=== PATIENT | female | born 1995 ===

== ENCOUNTER 2017-07-25 12:26 | Emergency (ER) | payer OTHER ==
[2017-07-25] MEDS ORDERED: Sodium Chloride 0.9% 1,000 ML IV STA (14:22)
--- NOTE | 2017-07-25 14:32 | ED PDOC ---
HPI: Abdomen Time Seen by Provider: 07/25/17 14:07 Chief Complaint (Nursing): Abdominal Pain Chief Complaint (Provider): abdominal pain, diarrhea, vomiting, dog bite History Per: Patient History/Exam Limitations: no limitations Onset/Duration Of Symptoms: Days (10) Current Symptoms Are (Timing): Intermittent Episodes Location Of Pain/Discomfort: LLQ Quality Of Discomfort: Sharp, Cramping Associated Symptoms: Fever, Nausea, Vomiting, Diarrhea, Loss Of Appetite. denies: Urinary Symptoms Exacerbating Factors: None Alleviating Factors: None Last Bowel Movement: Today Additional Complaint(s): 22yo female presents c/o sharp LLQ abd pain started about 7 days ago while in [place]. Went to doctor in [place] started on (as translated by pharmacist) ranitidine, reglan and pinaverium (antimuscarinic/ antispasmodic), also took bactrim for one day but poorly tolerated so she stopped it on her own. She also notes a dog bite to [place] on july 16, bit by her cousins dog- he stated the dog was "vaccinated" but no paperwork provided to patient for such. States she went to [facility] after dogbite and had injection at area of bite and one in her buttock but she was not told it was for rabies and shes unsure what the injections were for. No paperwork from [place] other than the GI medications prescribed. Denies rash, headache, weakness, body aches or seizure activity. Past Medical History Reviewed: Historical Data, Nursing Documentation, Vital Signs Vital Signs: Last Vital Signs Temp 97.0 F L 07/25/17 13:18 Pulse 85 07/25/17 13:18 Resp 18 07/25/17 13:18 BP 113/77 07/25/17 13:18 Pulse Ox 99 07/25/17 15:08 - Medical History PMH: No Chronic Diseases - Surgical History Surgical History: No Surg Hx - Family History Family History: States: Unknown Family Hx - Living Arrangements Living Arrangements: With Family - Immunization History Hx Tetanus Toxoid Vaccination: No Hx Influenza Vaccination: No Hx Pneumococcal Vaccination: No - Home Medications Home Medications: Ambulatory Orders Medication Instructions Recorded Ciprofloxacin HCl [Ciprofloxacin] 500 mg PO BID #13 tab 08/27/15 Ciprofloxacin [Cipro] 500 mg PO BID #14 tab 07/25/17 Ibuprofen [Motrin Tab] 600 mg PO Q6 PRN #15 tab 07/25/17 Ondansetron ODT [Zofran ODT] 4 mg PO Q6 PRN #10 odt 07/25/17 metroNIDAZOLE [Flagyl] 500 mg PO TID #21 tab 07/25/17 - Allergies Allergies/Adverse Reactions: Allergies Allergy/AdvReac Type Severity Reaction Status Date / Time No Known Allergies Allergy Verified 03/23/16 21:39 Review of Systems Constitutional: Negative for: Malaise Eyes: Negative for: Conjunctivae Inflammation Cardiovascular: Negative for: Chest Pain Respiratory: Negative for: Shortness of Breath Gastrointestinal: Positive for: Nausea, Vomiting, Abdominal Pain, Diarrhea Genitourinary Female: Negative for: Dysuria, Hematuria Musculoskeletal: Negative for: Neck Pain, Back Pain Skin: Negative for: Rash, Lesions Neurological: Negative for: Weakness, Headache, Dizziness Psych: Negative for: Suicidal ideation Physical Exam - Reviewed Nursing Documentation Reviewed: Yes Vital Signs Reviewed: Yes - Physical Exam Appears: Positive for: Well, Non-toxic, No Acute Distress Head Exam: Positive for: ATRAUMATIC, NORMAL INSPECTION, NORMOCEPHALIC Skin: Positive for: Normal Color, Warm, DRY Eye Exam: Positive for: EOMI, Normal appearance, PERRL ENT: Positive for: Normal ENT Inspection Neck: Positive for: Normal, Painless ROM Cardiovascular/Chest: Positive for: Regular Rate, Rhythm Respiratory: Positive for: CNT, Normal Breath Sounds Gastrointestinal/Abdominal: Positive for: Soft, Tenderness (+LLQ tenderness). Negative for: Guarding, Rebound Back: Positive for: Normal Inspection Extremity: Positive for: Normal ROM Neurologic/Psych: Positive for: Alert, Oriented - Laboratory Results Result Diagrams: 07/25/17 14:40 07/25/17 14:40 - ECG O2 Sat by Pulse Oximetry: 99 Medical Decision Making Medical Decision Making: workup for delayed presentation of dog bite and Abd pain w diarrhea/vomiting in setting travel to [place] Discussed dog bite with ID material preparation worker Dr Howard- given inability to confirm dogs rabies vaccination, inaccessability of dog, recommend immunoglobulin and vaccine. Risks/benefits discussed w patient. She agrees to receive both. She checked with MD in [place] who saw her and only lidocaine and toradol were given IM in [place]. Cannot confirm dog rabies status. While delayed presentation from bite, package insert for immuniglobulin states interval not relevant for administration. Disposition - Clinical Impression Clinical Impression: Encounter for prophylactic rabies immune globin, Travelers' diarrhea, Colitis - Patient ED Disposition Is Patient to be Admitted: No Counseled Patient/Family Regarding: Studies Performed, Diagnosis, Need For Followup, Rx Given - Disposition Disposition: Routine/Home Disposition Time: 17:45 Condition: STABLE Additional Instructions: Rabies vaccine as directed, speak to your PMD for vaccine series, or if unable, return to ER Day 3 (07/28), Day 7 (08/01), Day 14 (08/08/17) Take antibiotics as directed for colitis. Drink plenty of fluids. Avoid milk / dairy for 2 weeks. Prescriptions: Ciprofloxacin [Cipro] 500 mg PO BID #14 tab Ibuprofen [Motrin Tab] 600 mg PO Q6 PRN #15 tab PRN Reason: Pain, Moderate (4-7) metroNIDAZOLE [Flagyl] 500 mg PO TID #21 tab Ondansetron ODT [Zofran ODT] 4 mg PO Q6 PRN #10 odt PRN Reason: Nausea/Vomiting Instructions: Traveler's Diarrhea, Animal Bites (DC), Rabies Vaccine, Rabies Immune Globulin (Human) Forms: [facility] (Yoruba)
[2017-07-25 14:56] LABS: BASO # 0.1 K/uL (0.0-0.2); BASO % 0.7 % (0.0-2.0); EOS # 0.3 K/uL (0.0-0.7); EOS % 3.8 % (0.0-4.0); HEMOGLOBIN 13.2 g/dL (12.0-16.0); LYMPH # 1.8 K/uL (1.0-4.3); LYMPH % 24.7 % (20.0-40.0); MEAN CELL VOLUME 88.4 fl (81.0-99.0); MEAN CORPUSCULAR HEMOGLOBIN 30.5 pg (27.0-31.0); MEAN CORPUSCULAR HGB CONC 34.6 g/dL (33.0-37.0); MEAN PLATELET VOLUME 8.5 fl (7.2-11.7); MONO % 13.9 % (0.0-10.0); NEUT # 4.2 K/uL (1.8-7.0); NEUT % 56.9 % (50.0-75.0); NRBC % 0.1 % (0.0-0.0); RBC 4.31 Mil/uL (3.80-5.20); RED CELL DISTRIBUTION WIDTH 12.8 % (11.5-14.5); WHITE BLOOD COUNT 7.5 K/uL (4.8-10.8)
[2017-07-25 15:12] LABS: ALB/GLOB RATIO 0.9 (1.0-2.1); ALBUMIN 4.2 g/dL (3.5-5.0); GFR AFRICAN-AMERICAN > 60; GFR NON-AFRICAN AMERICAN > 60; LIPASE 123 U/L (23-300); SQUAMOUS EPITHIAL 2 /hpf (0-5); URINE BACTERIA RARE (<OCC); URINE BILIRUBIN NEGATIVE (NEGATIVE); URINE BLOOD SMALL (NEGATIVE); URINE CLARITY CLEAR (Clear); URINE COLOR STRAW (YELLOW); URINE GLUCOSE (UA) NEG (Normal); URINE LEUKOCYTE ESTERASE NEG Leu/uL (Negative); URINE PROTEIN NEGATIVE (NEGATIVE); URINE UROBILINOGEN 0.2-1.0 mg/dL (0.2-1.0)
[2017-07-25 15:15] LABS: ALT/SGPT 38 U/L (9-52); AST/SGOT 29 U/L (14-36); BLOOD UREA NITROGEN 12 mg/dl (7-17)
[2017-07-25 15:45] VITALS: BMI 36.9
[2017-07-25] MEDS ORDERED: Sodium Chloride 0.9% 50 ML IV ONE (16:41)
[2017-07-25] MEDS ORDERED: Iohexol 300 100 ML IJ ONE (16:41)
[2017-07-25] MEDS: Rabies Immune Globulin 150 INTLU/ML VIAL IM ONE ×2 (17:01→17:05)
--- NOTE | 2017-07-25 18:22 | CT ---
PROCEDURE: CT Abdomen and Pelvis with contrast HISTORY: LLQ pain, diarrhea, persistent vomiting COMPARISON: None. TECHNIQUE: Contrast dose: 95 cc Omnipaque 300 Radiation dose: Total exam DLP = mGy-cm. This CT exam was performed using one or more of the following dose reduction techniques: Automated exposure control, adjustment of the mA and/or kV according to patient size, and/or use of iterative reconstruction technique. FINDINGS: LOWER THORAX: Unremarkable. LIVER: Unremarkable. No gross lesion or ductal dilatation. GALLBLADDER AND BILE DUCTS: Unremarkable. PANCREAS: Unremarkable. No gross lesion or ductal dilatation. SPLEEN: Unremarkable. ADRENALS: Unremarkable. No mass. KIDNEYS AND URETERS: Unremarkable. No hydronephrosis. No solid mass. VASCULATURE: Unremarkable. No aortic aneurysm. BOWEL: Thickening of the wall of the descending colon likely mild colitis. Fecal debris and fluid identified in the right blas colon. No drainable collection, loculated air. APPENDIX: Normal appendix. PERITONEUM: Unremarkable. No free fluid. No free air. LYMPH NODES: Unremarkable. No enlarged lymph nodes. BLADDER: Unremarkable. REPRODUCTIVE: Unremarkable uterus. Bilateral adnexal cysts and/or follicles likely physiologic. BONES: No acute fracture. OTHER FINDINGS: None. IMPRESSION: Findings consistent with mild colitis limited to the left hemicolon. Additional benign and/or incidental findings described above.
[2017-07-25 19:37] VITALS: BP 122/76; PULSE 81; RESP 17; TEMP 97.9; O2SAT 100
== END 2017-07-25 19:36 | disposition home or self-care (01) ==
LOC: H.ER 12:26
DX: K52.9 Noninfective gastroenteritis and colitis, unspecified (principal); R19.7 Diarrhea, unspecified; S30.810A Abrasion of lower back and pelvis, initial encounter; W54.0XXA Bitten by dog, initial encounter; Y92.89 Other specified places as the place of occurrence of the external cause
CPT/HCPCS: 74177; 80053; 81003; 81025; 83690; 85025; 90375; 90471; 90675; 96372; 96374; 99283; J1885; J7030; Q9967

== ENCOUNTER 2017-07-28 12:02 | Emergency (ER) | payer OTHER ==
[2017-07-28 12:04] VITALS: BMI 36.9
[2017-07-28 12:54] VITALS: PULSE 76; O2SAT 100
[2017-07-28] MEDS ORDERED: Rabies Immune Globulin 150 INTLU/ML VIAL IM STA (13:09)
[2017-07-28] MEDS ORDERED: Tdap Vaccine 0.5 ml Vial (10-64 yrs) IM ONE (13:09)
--- NOTE | 2017-07-28 14:05 | ED PDOC ---
HPI: General Adult Time Seen by Provider: 07/28/17 13:07 Chief Complaint (Nursing): Rabies Vaccine Series Chief Complaint (Provider): Rabies Vaccine Series History Per: Patient History/Exam Limitations: no limitations Onset/Duration Of Symptoms: Days Current Symptoms Are (Timing): Better Additional Complaint(s): 22 year old female presents to the emergency department for Rabies Vaccine series after being bit by her cousins dog in [place] about 2 weeks ago. States dog was vaccinated. Denies taking any antibiotics, fever or chills. Past Medical History Reviewed: Historical Data, Nursing Documentation, Vital Signs Vital Signs: Last Vital Signs Temp 98.1 F 07/28/17 12:51 Pulse 76 07/28/17 12:51 Resp 16 07/28/17 12:51 BP 112/69 07/28/17 12:51 Pulse Ox 100 07/28/17 14:09 - Medical History PMH: No Chronic Diseases - Surgical History Surgical History: No Surg Hx - Family History Family History: States: Unknown Family Hx - Social History Current smoker - smoking cessation education provided: No Alcohol: None Drugs: Denies - Immunization History Hx Tetanus Toxoid Vaccination: No Hx Influenza Vaccination: No Hx Pneumococcal Vaccination: No - Home Medications Home Medications: Ambulatory Orders Medication Instructions Recorded Ciprofloxacin HCl [Ciprofloxacin] 500 mg PO BID #13 tab 08/27/15 Ciprofloxacin [Cipro] 500 mg PO BID #14 tab 07/25/17 Ibuprofen [Motrin Tab] 600 mg PO Q6 PRN #15 tab 07/25/17 Ondansetron ODT [Zofran ODT] 4 mg PO Q6 PRN #10 odt 07/25/17 metroNIDAZOLE [Flagyl] 500 mg PO TID #21 tab 07/25/17 - Allergies Allergies/Adverse Reactions: Allergies Allergy/AdvReac Type Severity Reaction Status Date / Time No Known Allergies Allergy Verified 03/23/16 21:39 Review of Systems ROS Statement: Except As Marked, All Systems Reviewed And Found Negative (As per HPI, otherwise negative) Constitutional: Negative for: Fever, Chills Skin: Positive for: Other (Wound check up and rabies vaccine) Physical Exam - Reviewed Nursing Documentation Reviewed: Yes Vital Signs Reviewed: Yes - Physical Exam Appears: Positive for: Well, Non-toxic, No Acute Distress Head Exam: Positive for: ATRAUMATIC, NORMAL INSPECTION, NORMOCEPHALIC Skin: Positive for: Normal Color, Warm, Dry Eye Exam: Positive for: Normal appearance, EOMI Extremity: Positive for: Normal ROM, Other (Healing wounds noted to the left lower leg posterior region. No signs of erythema vs scab. No ecchymosis.). Negative for: Pedal Edema Neurologic/Psych: Positive for: Alert, Oriented (x3), Gait (Steady) - ECG O2 Sat by Pulse Oximetry: 100 (RA) Pulse Ox Interpretation: Normal Medical Decision Making Medical Decision Making: Time: 1308 Initial impression: Rabies Vaccine Initial plan: Rabies vaccine 2.5 units IM Disposition Time: 1405 Patient was given Rabies vaccine in the emergency department and is medically clear for discharge. Clinical Impression: Encounter for administration of vaccine. Visit for wound check. Scribe Attestation: Documented by Marlyn Gant, acting as a scribe for Claribel Haddad PA-C. Provider Scribe Attestation: All medical record entries made by the Scribe were at my direction and personally dictated by me. I have reviewed the chart and agree that the record accurately reflects my personal performance of the history, physical exam, medical decision making, and the department course for this patient. I have also personally directed, reviewed, and agree with the discharge instructions and disposition. Disposition - Clinical Impression Clinical Impression: Encounter for administration of vaccine, Visit for wound check - Patient ED Disposition Is Patient to be Admitted: No Counseled Patient/Family Regarding: Diagnosis - Disposition Disposition: Routine/Home Disposition Time: 14:05 Condition: STABLE Instructions: Vaccines Forms: [employer] (Kiswahili)
[2017-07-28 14:11] VITALS: BP 118/71; RESP 18; TEMP 98
== END 2017-07-28 14:11 | disposition home or self-care (01) ==
LOC: H.ER 12:02
DX: Z29.14 Encounter for prophylactic rabies immune globulin (principal)

== ENCOUNTER 2017-08-01 15:26 | Emergency (ER) | payer OTHER ==
[2017-08-01 15:27] VITALS: BMI 36.9
[2017-08-01 15:35] VITALS: BP 118/70; PULSE 74; RESP 18; TEMP 98; O2SAT 99
--- NOTE | 2017-08-01 15:44 | ED PDOC ---
HPI: General Adult Time Seen by Provider: 08/01/17 15:35 Chief Complaint (Nursing): Rabies Vaccine Series Chief Complaint (Provider): Rabies Vaccine Series History Per: Patient History/Exam Limitations: no limitations Additional Complaint(s): 22 year old female presents to the emergency department for day 7 of rabies vaccination. Denies rash or any further complaints. Past Medical History Reviewed: Historical Data, Nursing Documentation, Vital Signs Vital Signs: Last Vital Signs Temp 98 F 08/01/17 15:32 Pulse 74 08/01/17 15:32 Resp 18 08/01/17 15:32 BP 118/70 08/01/17 15:32 Pulse Ox 99 08/01/17 15:45 - Medical History PMH: No Chronic Diseases - Surgical History Surgical History: No Surg Hx - Family History Family History: States: Unknown Family Hx - Social History Drugs: Denies - Immunization History Hx Tetanus Toxoid Vaccination: No Hx Influenza Vaccination: No Hx Pneumococcal Vaccination: No - Home Medications Home Medications: Ambulatory Orders Medication Instructions Recorded Ciprofloxacin HCl [Ciprofloxacin] 500 mg PO BID #13 tab 08/27/15 Ciprofloxacin [Cipro] 500 mg PO BID #14 tab 07/25/17 Ibuprofen [Motrin Tab] 600 mg PO Q6 PRN #15 tab 07/25/17 Ondansetron ODT [Zofran ODT] 4 mg PO Q6 PRN #10 odt 07/25/17 metroNIDAZOLE [Flagyl] 500 mg PO TID #21 tab 07/25/17 - Allergies Allergies/Adverse Reactions: Allergies Allergy/AdvReac Type Severity Reaction Status Date / Time No Known Allergies Allergy Verified 03/23/16 21:39 Review of Systems ROS Statement: Except As Marked, All Systems Reviewed And Found Negative (As per HPI, otherwise negative) Constitutional: Positive for: Other (Rabies Vaccine series) Skin: Negative for: Rash Physical Exam - Reviewed Nursing Documentation Reviewed: Yes Vital Signs Reviewed: Yes - Physical Exam Appears: Positive for: Well, No Acute Distress Head Exam: Positive for: ATRAUMATIC, NORMAL INSPECTION, NORMOCEPHALIC Skin: Positive for: Normal Color, Warm. Negative for: Rash Neurologic/Psych: Positive for: Alert, Oriented (x3) - ECG O2 Sat by Pulse Oximetry: 99 (RA) Pulse Ox Interpretation: Normal Medical Decision Making Medical Decision Making: Time: 1536 Initial impression: Rabies Vaccine Series Initial plan: Rabies Vaccine 2.5 units IM Reevaluation Time: 1550 Patient received rabies vaccinations. Day 7. Offers no further complaints. Medically stable for discharge. Advised to follow up with Dr. Jer Weber MD. --Return to ED in 7 days for Day 14 rabies vaccination. Clinical Impression: Encounter for repeat administration for rabies vaccination Scribe Attestation: Documented by Marlyn Gant, acting as a scribe for Garo Barth PA-C. Provider Scribe Attestation: All medical record entries made by the Scribe were at my direction and personally dictated by me. I have reviewed the chart and agree that the record accurately reflects my personal performance of the history, physical exam, medical decision making, and the department course for this patient. I have also personally directed, reviewed, and agree with the discharge instructions and disposition. Disposition - Clinical Impression Clinical Impression: Encounter for repeat administration of rabies vaccination - Patient ED Disposition Is Patient to be Admitted: No Counseled Patient/Family Regarding: Diagnosis, Need For Followup - Disposition Referrals: Jer Weber MD [Primary Care Provider] - Disposition: Routine/Home Disposition Time: 15:50 Condition: STABLE Additional Instructions: Return to ED in 7 days for Day 14 rabies vaccination. Instructions: What Are Vaccines?, Rabies Vaccine Forms: [employer] (Slovenian) Print Language: ROMANIAN
== END 2017-08-01 16:21 | disposition home or self-care (01) ==
LOC: SUPCPDRO 15:26 → H.ER 15:26
DX: Z29.14 Encounter for prophylactic rabies immune globulin (principal)

== ENCOUNTER 2017-08-08 15:59 | Emergency (ER) | payer OTHER ==
[2017-08-08 15:59] VITALS: BMI 36.9
[2017-08-08 16:30] VITALS: BP 109/67; PULSE 87; RESP 16; TEMP 98.1; O2SAT 99
--- NOTE | 2017-08-08 18:37 | ED PDOC ---
HPI: General Adult Time Seen by Provider: 08/08/17 16:33 Chief Complaint (Nursing): Rabies Vaccine Series Chief Complaint (Provider): Rabies Vaccine Series History Per: Patient History/Exam Limitations: no limitations Onset/Duration Of Symptoms: Days Have you had recent travel within the past 21 days to any of the following countries: [place], [place], [place] or [place]?: Yes Other Location:: [place] Current Symptoms Are (Timing): Better Recently: Seen In ED Additional Complaint(s): 22 y/o female presents to the ED for her third rabies vaccine shot of the series. Patient reports being bitten by a dog while in [place] 3 weeks ago. She states upon returning to the [facility] she was seen for the bite. She states around the time of the bite she wasn't feeling well. Patient received the first two vaccines of the rabies series. She is here requesting her third shot of the series. Patient currently has no medical complaints as symptoms have improved since the first shot. LMP: in February, she states they are usually irregular PMD: Dr. Weber Past Medical History Reviewed: Historical Data, Nursing Documentation, Vital Signs Vital Signs: Last Vital Signs Temp 98.1 F 08/08/17 16:28 Pulse 87 08/08/17 16:28 Resp 16 08/08/17 16:28 BP 109/67 08/08/17 16:28 Pulse Ox 99 08/08/17 16:28 - Medical History PMH: No Chronic Diseases - Surgical History Surgical History: No Surg Hx - Family History Family History: States: Unknown Family Hx - Social History Current smoker - smoking cessation education provided: No Ex-Smoker (has not smoked in the last 12 months): No Alcohol: None Drugs: Denies - Immunization History Hx Tetanus Toxoid Vaccination: No Hx Influenza Vaccination: No Hx Pneumococcal Vaccination: No - Home Medications Home Medications: Ambulatory Orders Medication Instructions Recorded Ciprofloxacin HCl [Ciprofloxacin] 500 mg PO BID #13 tab 08/27/15 Ciprofloxacin [Cipro] 500 mg PO BID #14 tab 07/25/17 Ibuprofen [Motrin Tab] 600 mg PO Q6 PRN #15 tab 07/25/17 Ondansetron ODT [Zofran ODT] 4 mg PO Q6 PRN #10 odt 07/25/17 metroNIDAZOLE [Flagyl] 500 mg PO TID #21 tab 07/25/17 - Allergies Allergies/Adverse Reactions: Allergies Allergy/AdvReac Type Severity Reaction Status Date / Time No Known Allergies Allergy Verified 03/23/16 21:39 Review of Systems ROS Statement: Except As Marked, All Systems Reviewed And Found Negative Constitutional: Positive for: Other (here for her third shot in the rabies series) Physical Exam - Reviewed Nursing Documentation Reviewed: Yes Vital Signs Reviewed: Yes - Physical Exam Comments: GENERAL APPEARANCE: Patient is awake, alert, oriented x 3, in mild painful distress. Resting comfortably on cell phone. SKIN: Warm, dry; (-) cyanosis. Healing bite wound is 1x1 cm to the proximal posterior left lower leg. (-) erythema (-) tenderness (-) swelling EYES: (-) conjunctival pallor, (-) scleral icterus. NECK: (-) tenderness, (-) stiffness, (-) lymphadenopathy. CHEST AND RESPIRATORY: (-) rales, (-) rhonchi, (-) wheezes; breath sounds equal bilaterally. HEART AND CARDIOVASCULAR: (-) irregularity; (-) murmur, (-) gallop. EXTREMITIES: (-) deformity, (-) edema, (+) distal pulses (+) Full ROM lower extremity NEURO AND PSYCH: Mental status as above; (-) focal findings. Gait is steady in ED. - ECG O2 Sat by Pulse Oximetry: 99 (RA) Pulse Ox Interpretation: Normal Medical Decision Making Medical Decision Making: Time: 16:28 Impression: Rabies vaccine, dog bite Plan: * 3rd shot in rabies vaccine series; 2.5 units IM Patient is stable for discharge. Scribe Attestation: Documented by Ross Obrien acting as a scribe Denise Zuñiga PA-C. MD Scribe Attestation: All medical record entries made by the Scribe were at my direction and personally dictated by me. I have reviewed the chart and agree that the record accurately reflects my personal performance of the history, physical exam, medical decision making, and the department course for this patient. I have also personally directed, reviewed, and agree with the discharge instructions and disposition. Disposition - Clinical Impression Clinical Impression: Need for rabies vaccination, Dog bite - Disposition Condition: GOOD Additional Instructions: FOLLOW UP WITH PMD NEEDED. RETURN TO ED WITH ANY NEW OR WORSENING SYMPTOMS. KEEP WOUND CLEAN AND DRY. Instructions: What Are Vaccines?, Rabies Vaccine Forms: [employer] (Angolan) Print Language: AZERBAIJANI
== END 2017-08-08 17:53 | disposition home or self-care (01) ==
LOC: H.ER 15:59
DX: Z29.14 Encounter for prophylactic rabies immune globulin (principal)